=== PATIENT | male | born 1985 | race Caucasian/White ===

== ENCOUNTER 2017-07-19 16:21 | Observation (INO) | payer OTHER ==
[2017-07-19] MEDS ORDERED: NALOXONE 0.4 MG/ML 1 ML VIAL IV STA (16:44)
[2017-07-19] MEDS ORDERED: SODIUM CHLORIDE 0.9% 500 ML IV STA (16:46)
--- NOTE | 2017-07-19 16:48 | ED ---
General Adult HPI - General Chief complaint: Altered Mental Status Stated complaint: Alter Mental Status Time Seen by Provider: 07/19/17 16:21 Source: patient, police, EMS, RN notes reviewed Mode of arrival: EMS Limitations: altered mental status - History of Present Illness Initial comments: This is a 31-year-old male who was brought in accompanied by the police because he was driving erratically. Patient falls asleep quickly according to EMS but is easily arousable. EMS stated his eyes were pinpoint. Patient admits to being a previous heroin user but states she's been clean for quite a while. Patient denies any drug use today. Patient states she's just extremely tired from working too much. Patient denies any headache patient denies numbness weakness. Patient denies lightheadedness dizziness or syncopal episode. Patient denies chest pain palpitations difficulty breathing or shortness of breath per patient denies abdominal pain patient denies nausea vomiting diarrhea - Related Data Allergies Allergy/AdvReac Type Severity Reaction Status Date / Time No Known Allergies Allergy Verified 07/19/17 16:43 Review of Systems ROS Statement: Those systems with pertinent positive or pertinent negative responses have been documented in the HPI. ROS Other: All systems not noted in ROS Statement are negative. Past Medical History Past Medical History: No Reported History History of Any Multi-Drug Resistant Organisms: None Reported Past Surgical History: No Surgical Hx Reported Past Psychological History: No Psychological Hx Reported Smoking Status: Current every day smoker Past Alcohol Use History: None Reported Past Drug Use History: Heroin, IV Drug Use General Exam - General Exam Comments Initial Comments: GENERAL: Patient is well-developed and well-nourished. Patient is nontoxic and well- hydrated and is in no acute distress. Patient will fall sleep so she stopped talking to him but he is arousable with just verbal ENT: Neck is soft and supple. No significant lymphadenopathy is noted. Oropharynx is clear. Moist mucous membranes. Neck has full range of motion without eliciting any pain. There is no thyroid enlargement and no masses were felt. EYES: The sclera were anicteric and conjunctiva were pink and moist. Pupils are pinpoint. Extraocular movements were intact and pupils were equal round and reactive to light. Eyelids were unremarkable. PULMONARY: Unlabored respirations. Good breath sounds bilaterally. No audible rales rhonchi or wheezing was noted. CARDIOVASCULAR: There is a regular rate and rhythm without any murmurs gallops or rubs. ABDOMEN: Soft and nontender with normal bowel sounds. No palpable organomegaly was noted. There is no palpable pulsatile mass. SKIN: Skin is clear with no lesions or rashes and otherwise unremarkable. NEUROLOGIC: Patient is alert and oriented x3. Cranial nerves II through XII are grossly intact. Motor and sensory are also intact. Normal speech, volume and content. Symmetrical smile. MUSCULOSKELETAL: Normal extremities with adequate strength and full range of motion. No lower extremity swelling or edema. No calf tenderness. LYMPHATICS: No significant lymphadenopathy is noted PSYCHIATRIC: Normal psychiatric evaluation. Limitations: altered mental status Course Vital Signs 07/19/17 07/19/17 16:31 17:55 Temperature 97.9 F Pulse Rate 142 H 126 H Respiratory 15 20 Rate Blood Pressure 155/90 152/85 O2 Sat by Pulse 89 L 99 Oximetry Medical Decision Making - Medical Decision Making EKG shows sinus tachycardia at 133 bpm MA interval is 136 dresses 84 QT interval is 296 QTC is 440. Patient's EKG shows no ST segment elevation or depression or T wave normalities are noted. Chest x-ray shows no acute abnormalities I spoke with Dr. Ahuja he agreed to admit the patient admitted the patient I wrote admitting orders. - Lab Data Result diagrams: 07/19/17 16:55 07/19/17 16:55 Lab Results 07/19/17 07/19/17 07/19/17 Range/Units 16:50 16:55 16:55 WBC 13.0 H (3.8-10.6) k/uL RBC 4.99 (4.30-5.90) m/uL Hgb 15.7 (13.0-17.5) gm/dL Hct 47.1 (39.0-53.0) % MCV 94.3 (80.0-100.0) fL MCH 31.5 (25.0-35.0) pg MCHC 33.4 (31.0-37.0) g/dL RDW 14.1 (11.5-15.5) % Plt Count 359 (150-450) k/uL Neutrophils % 70 % Lymphocytes % 20 % Monocytes % 6 % Eosinophils % 1 % Basophils % 1 % Neutrophils # 9.2 H (1.3-7.7) k/uL Lymphocytes # 2.6 (1.0-4.8) k/uL Monocytes # 0.7 (0-1.0) k/uL Eosinophils # 0.1 (0-0.7) k/uL Basophils # 0.1 (0-0.2) k/uL Sodium 141 (137-145) mmol/L Potassium 4.3 (3.5-5.1) mmol/L Chloride 105 (98-107) mmol/L Carbon Dioxide 22 (22-30) mmol/L Anion Gap 14 mmol/L BUN 15 (9-20) mg/dL Creatinine 1.10 (0.66-1.25) mg/dL Est GFR (MDRD) Af Amer >60 (>60 ml/min/1.73 sqM) Est GFR (MDRD) Non-Af >60 (>60 ml/min/1.73 sqM) Glucose 126 H (74-99) mg/dL Calcium 9.4 (8.4-10.2) mg/dL Total Bilirubin 0.7 (0.2-1.3) mg/dL AST 197 H (17-59) U/L ALT 484 H (21-72) U/L Alkaline Phosphatase 139 H (38-126) U/L Total Protein 8.5 H (6.3-8.2) g/dL Albumin 4.6 (3.5-5.0) g/dL Salicylates <1.0 mg/dL Urine Opiates Screen Detected H (NotDetected) Ur Oxycodone Screen Not Detected (NotDetected) Urine Methadone Screen Not Detected (NotDetected) Ur Propoxyphene Screen Not Detected (NotDetected) Acetaminophen <10.0 ug/mL Ur Barbiturates Screen Not Detected (NotDetected) U Tricyclic Antidepress Not Detected (NotDetected) Ur Phencyclidine Scrn Not Detected (NotDetected) Ur Amphetamines Screen Not Detected (NotDetected) U Methamphetamines Scrn Not Detected (NotDetected) U Benzodiazepines Scrn Not Detected (NotDetected) Urine Cocaine Screen Not Detected (NotDetected) U Marijuana (THC) Screen Not Detected (NotDetected) Serum Alcohol <10 mg/dL Disposition Clinical Impression: Heroin abuse, Tachycardia, Elevated liver enzymes Disposition: ADMITTED IP TO THIS HOSP Referrals: Mariah Bauer MD [Primary Care Provider] - 1-2 days Time of Disposition: 18:51
[2017-07-19 17:11] LABS: Basophils # (A) 0.1 k/uL (0-0.2); Basophils % (A) 1 %; CH 30.9; CHCM 32.9; Eosinophils # (A) 0.1 k/uL (0-0.7); Eosinophils % (A) 1 %; HCT 47.1 % (39.0-53.0); HGB 15.7 gm/dL (13.0-17.5); Luc # (Auto) 0.31; Luc % (Auto) 2; Lymphocytes # (A) 2.6 k/uL (1.0-4.8); Lymphocytes % (A) 20 %; MCH 31.5 pg (25.0-35.0); MCHC 33.4 g/dL (31.0-37.0); MCV 94.3 fL (80.0-100.0); Mean Platelet Volume 6.6; Monocytes # (A) 0.7 k/uL (0-1.0); Monocytes % (A) 6 %; Neutrophils # (A) 9.2 k/uL (1.3-7.7); Neutrophils % (A) 70 %; RBC 4.99 m/uL (4.30-5.90); RDW 14.1 % (11.5-15.5)
[2017-07-19 17:15] LABS: ALT 484 U/L (21-72); AST 197 U/L (17-59); Acetaminophen <10.0 ug/mL; Alcohol <10 mg/dL; Alkaline Phosphatase 139 U/L (38-126); Anion Gap 14 mmol/L; Blood Urea Nitrogen 15 mg/dL (9-20); Calcium 9.4 mg/dL (8.4-10.2); Carbon Dioxide 22 mmol/L (22-30); Chloride 105 mmol/L (98-107); Glucose 126 mg/dL (74-99); Non-African American GFR(MDRD) >60 (>60 ml/min/1.73 sqM); Potassium 4.3 mmol/L (3.5-5.1); Salicylate <1.0 mg/dL; Sodium 141 mmol/L (137-145); Total Bilirubin 0.7 mg/dL (0.2-1.3); Total Protein 8.5 g/dL (6.3-8.2)
[2017-07-19] MEDS ORDERED: SODIUM CHLORIDE 0.9% 1,000 ML IV ONE (18:51)
--- NOTE | 2017-07-19 19:41 | XR ---
EXAMINATION TYPE: XR chest 2V DATE OF EXAM: 07/19/2017 COMPARISON: NONE HISTORY: Dyspnea and tachycardia TECHNIQUE: Frontal and lateral views of the chest are obtained. FINDINGS: There is no focal air space opacity, pleural effusion, or pneumothorax seen. The cardiac silhouette size is within normal limits. The osseous structures are intact. IMPRESSION: No acute cardiopulmonary process.
[2017-07-19 23:09] VITALS: BMI 26.4
[2017-07-20] MEDS ORDERED: ACETAMINOPHEN TAB 325 MG TAB PO PRN (06:18)
[2017-07-20 06:53] LABS: ALT 426 U/L (21-72); AST 178 U/L (17-59); Alkaline Phosphatase 105 U/L (38-126); Anion Gap 8 mmol/L; Blood Urea Nitrogen 13 mg/dL (9-20); Calcium 9.3 mg/dL (8.4-10.2); Carbon Dioxide 27 mmol/L (22-30); Chloride 102 mmol/L (98-107); Glucose 88 mg/dL (74-99); Non-African American GFR(MDRD) >60 (>60 ml/min/1.73 sqM); Potassium 4.4 mmol/L (3.5-5.1); Sodium 137 mmol/L (137-145); Total Bilirubin 0.9 mg/dL (0.2-1.3); Total Protein 7.5 g/dL (6.3-8.2)
[2017-07-20 07:40] VITALS: BP 115/71; PULSE 78; RESP 16; TEMP 98.1
--- NOTE | 2017-07-20 19:51 | HP ---
HISTORY AND PHYSICAL This is a combined History and Physical and Discharge Summary. DATE OF SERVICE: 07/20/2017 CHIEF COMPLAINT: Change in mental status. HISTORY OF PRESENT ILLNESS: This 31-year-old gentleman with a past medical history of multiple medical problems including polysubstance abuse, being followed by Dr. Mariah Bauer in the outpatient setting apparently was clean for several months but apparently patient sniffed some substance yesterday and the patient was found to be erratically driving and was confused and the patient taken to [facility] admitted for evaluation and treatment. There is no history of fever, rigors. No history of headache, loss of consciousness or seizures at this time. PAST MEDICAL HISTORY: History of polysubstance abuse, history of IV heroin abuse. MEDICATIONS: Motrin p.r.n. ALLERGIES: None. FAMILY HISTORY: History of cataract in the family. SOCIAL HISTORY: History of smoking, history of polysubstance abuse. REVIEW OF SYSTEMS: ENT: No diminished hearing or diminished vision. CARDIOVASCULAR: No angina or palpitations. RESPIRATORY: No cough or hemoptysis. GI: No nausea. : No dysuria. NERVOUS SYSTEM: No numbness. As mentioned. MUSCULOSKELETAL: As mentioned. HEMATOLOGY: No history of anemia. ENDOCRINOLOGY: No history of diabetes. CONSTITUTIONAL: As mentioned. PSYCHIATRIC: As mentioned. PHYSICAL EXAMINATION: Pulse 78, blood pressure 118/71, respirations 16, temp 98.1, pulse ox 97% room air. HEENT: Conjunctivae normal. NECK: No JVD. CARDIOVASCULAR: S1/S2, muffled. RESPIRATORY: Diminished breath sounds, especially at the bases. A few rhonchi. No crackles. ABDOMEN: Soft. Nontender. No mass palpable. LEGS: No edema. NEURO SYSTEM: No focal deficits. LABS: WBC 13 and glucose 126. AST is 197, ALT 484 and is stable at this time. ASSESSMENT: 1. Change in mental status, metabolic encephalopathy, possibly drug induced. 2. Elevated AST and ALT, possibly hepatitis, rule out hepatitis C. 3. Increased WBC. 4. History of polysubstance abuse. 5. History of nicotine dependence. RECOMMENDATION AND DISCUSSION: In this 31-year-old gentleman who presented with multiple complex medical issues , we will monitor the patient closely. Currently the patient has significant improvement. As mentioned, AST and ALT are stable at this time. I recommend a hepatitis panel but, however, the patient would like to be discharged and follow up in the outpatient setting. Also, discussed at length with the patient and recommended to continue with rehab efforts and narcotic anonymous meetings and continue to monitor. Otherwise, repeat labs in the outpatient setting. Prognosis guarded because of multiple complex medical issues. Further recommendations to follow. The patient will be discharged on Motrin on a p.r.n. basis. JENNIFER / KENDALLN: [id number] / MTDD
== END 2017-07-20 11:08 | disposition home or self-care (01) ==
LOC: EC 16:21 → 6SEL 18:51 → 3OBS 22:36
PROVIDERS: ADMIT Hospitalist; ATTEND Hospitalist
DX: G93.41 Metabolic encephalopathy (principal); R74.8 Abnormal levels of other serum enzymes; D72.829 Elevated white blood cell count, unspecified; R00.0 Tachycardia, unspecified; F11.10 Opioid abuse, uncomplicated; F17.200 Nicotine dependence, unspecified, uncomplicated; F19.10 Other psychoactive substance abuse, uncomplicated
CPT/HCPCS: 99285; 96374; 96361 ×5; 36415; 93005; 80053 ×2; 85025; 80306; 83520 ×2; 80320; 71020; G0378 ×3; J2310

== ENCOUNTER → 2020-05-09 | Outpatient (CLI) | payer OTHER ==
--- NOTE | 2020-05-09 09:40 | US ---
EXAMINATION TYPE: US liver DATE OF EXAM: 05/09/2020 COMPARISON: NONE CLINICAL HISTORY: B18.2 Chronic viral hepatitis C. Chronic viral hep C EXAM MEASUREMENTS: Liver Length: 16.0 cm Gallbladder Wall: 0.1 cm CBD: 0.4 cm Right Kidney: 11.4 x 4.4 x 5.4 cm Pancreas: wnl Liver: wnl Gallbladder: wnl Evidence for sonographic Matta's sign: no CBD: visualized portions wnl, limited by overlying bowel gas Right Kidney: wnl IMPRESSION: 1. No acute process.
== END | disposition home or self-care (01) ==
LOC: RADUSWWP 08:51
PROVIDERS: ATTEND Internal Medicine Gastroenterology
DX: B18.2 Chronic viral hepatitis C (principal)
CPT/HCPCS: 76705

== ENCOUNTER → 2020-09-04 | Outpatient (CLI) | payer OTHER ==
[2020-09-04 13:48] LABS: Basophils # (A) 0.1 k/uL (0-0.2); Basophils % (A) 1 %; Eosinophils # (A) 0.3 k/uL (0-0.7); Eosinophils % (A) 3 %; HGB 14.6 gm/dL (13.0-17.5); Lymphocytes # (A) 3.5 k/uL (1.0-4.8); Lymphocytes % (A) 43 %; MCHC 33.2 g/dL (31.0-37.0); MCV 93.4 fL (80.0-100.0); Mean Platelet Volume 6.8; Monocytes # (A) 0.3 k/uL (0-1.0); Monocytes % (A) 4 %; Neutrophils # (A) 3.8 k/uL (1.3-7.7); Neutrophils % (A) 47 %; Platelet Count 264 k/uL (150-450); RBC 4.72 m/uL (4.30-5.90); RDW 12.4 % (11.5-15.5); WBC 8.1 k/uL (3.8-10.6)
[2020-09-04 18:47] LABS: ALT 18 U/L (10-49); AST 28 U/L (14-35); Albumin/Globulin Ratio 1.39 (1.60-3.17); Alkaline Phosphatase 67 U/L (41-126); Bilirubin, Conjugated <0.20 mg/dL (0.20-0.40); Globulin 3.1 g/dL (1.6-3.3); Total Bilirubin 0.3 mg/dL (0.2-1.2); Total Protein 7.4 g/dL (6.2-8.2)
== END | disposition home or self-care (01) ==
LOC: LABWHC1 12:12
PROVIDERS: ATTEND Physician Assistant
DX: B18.2 Chronic viral hepatitis C (principal)
CPT/HCPCS: 36415; 80076; 85025; 87522

== ENCOUNTER 2021-04-01 11:35 | Emergency (ER) | payer OTHER ==
[2021-04-01 12:12] VITALS: BP 115/74; PULSE 78; RESP 18; TEMP 98.3
--- NOTE | 2021-04-01 12:56 | XR ---
EXAMINATION TYPE: XR knee complete LT DATE OF EXAM: 04/01/2021 CLINICAL HISTORY: left knee pain TECHNIQUE: Three views of the left knee are obtained. COMPARISON: None. FINDINGS: There is no acute fracture/dislocation evident in left knee. The tri-compartment joint sp aces appear within normal limits. The overlying soft tissue appears unremarkable. IMPRESSION: There is no acute fracture or dislocation in the left knee.
[2021-04-01] MEDS ORDERED: KETOROLAC 15 MG/ML 1 ML VIAL IM STA (13:17)
--- NOTE | 2021-04-01 13:22 | ED ---
General Adult HPI - General Chief complaint: Extremity Injury, Lower Stated complaint: Knee injury Time Seen by Provider: 04/01/21 12:28 Source: patient, RN notes reviewed Mode of arrival: ambulatory Limitations: no limitations - History of Present Illness Initial comments: Patient is a pleasant 35-year-old male presenting to the emergency Department wi complaints of left knee discomfort. Onset of symptoms was a couple of days ago with picking up his daughter going from a sitting to standing edition. Patient aggravated a couple other times at work. Patient does have some mild chronic knee limbs associated with work and hockey lifelong. Patient states discomfort is minimal at rest but severe with certain movements. No swelling. No redness or warmth. No fevers. No leg weakness. - Related Data Home Medications Medication Instructions Recorded Confirmed Ibuprofen [Motrin] 800 mg PO Q8H PRN 07/19/17 07/19/17 Previous Rx's Medication Instructions Recorded Ibuprofen [Motrin] 600 mg PO Q6HR PRN #20 tab 04/01/21 Allergies Allergy/AdvReac Type Severity Reaction Status Date / Time No Known Allergies Allergy Verified 04/01/21 12:11 Review of Systems ROS Statement: Those systems with pertinent positive or pertinent negative responses have been documented in the HPI. ROS Other: All systems not noted in ROS Statement are negative. Constitutional: Denies: fever Eyes: Denies: eye pain ENT: Denies: ear pain Respiratory: Denies: cough Cardiovascular: Denies: chest pain Endocrine: Denies: fatigue Gastrointestinal: Denies: abdominal pain Genitourinary: Denies: dysuria Musculoskeletal: Reports: as per HPI Skin: Denies: rash Neurological: Denies: weakness Past Medical History Past Medical History: No Reported History History of Any Multi-Drug Resistant Organisms: None Reported Past Surgical History: No Surgical Hx Reported Additional Past Surgical History / Comment(s): 4 wisdom teeth removed Past Anesthesia/Blood Transfusion Reactions: No Reported Reaction Past Psychological History: No Psychological Hx Reported Smoking Status: Current every day smoker Past Alcohol Use History: None Reported Past Drug Use History: Heroin, IV Drug Use - Past Family History Mother Additional Family Medical History / Comment(s): cataract Father Family Medical History: No Reported History General Exam Limitations: no limitations General appearance: alert, in no apparent distress Head exam: Present: normocephalic Eye exam: Present: normal appearance Respiratory exam: Present: normal lung sounds bilaterally Cardiovascular Exam: Present: regular rate, normal rhythm Expanded Peripheral pulses: 2+: Posterior Tibialis (L), Dorsalis Pedis (L) Left Knee exam: Present: normal inspection, tenderness (Mild tenderness and area of medial meniscus). Absent: full ROM (Pain with range of motion), swelling, ecchymosis, erythema, effusion, posterior draw sign, pain/laxity with valgus, pain/laxity with varus Neurological exam: Present: alert. Absent: motor sensory deficit Psychiatric exam: Present: normal affect, normal mood Skin exam: Present: normal color Course Vital Signs 04/01/21 12:07 Temperature 98.3 F Pulse Rate 78 Respiratory 18 Rate Blood Pressure 115/74 O2 Sat by Pulse 99 Oximetry Medical Decision Making - Medical Decision Making Patient updated on results and recommend for follow-up with orthopedics Disposition Clinical Impression: Medial meniscus tear Disposition: HOME SELF-CARE Condition: Stable Instructions (If sedation given, give patient instructions): Knee Sprain (ED), Knee Pain (ED) Additional Instructions: Please do follow-up with primary care physician and orthopedics in the next couple days for recheck. Limit use of left knee. Ice to affected area. Continue use of crutches. Motrin as needed, prescription for Motrin 600 has been sent to pharmacy. Return for fever, increased pain or swelling, weakness, worsening symptoms or other concerns. Prescriptions: Ibuprofen [Motrin] 600 mg PO Q6HR PRN #20 tab PRN Reason: Pain Is patient prescribed a controlled substance at d/c from ED?: No Referrals: Mariah Bauer MD [Primary Care Provider] - 1-2 days Time of Disposition: 13:21
== END 2021-04-01 13:46 | disposition home or self-care (01) ==
LOC: EC 11:35
DX: S83.242A Other tear of medial meniscus, current injury, left knee, initial encounter (principal); F17.200 Nicotine dependence, unspecified, uncomplicated; Z79.1 Long term (current) use of non-steroidal anti-inflammatories (NSAID); X58.XXXA Exposure to other specified factors, initial encounter
CPT/HCPCS: 73562; 99283; 96372; L1830; J1885

== ENCOUNTER 2024-04-30 21:03 | Emergency (ER) | payer OTHER ==
[2024-04-30 21:08] VITALS: TEMP 98.3
[2024-04-30] MEDS: IBUPROFEN 800 MG TAB PO STA (22:17)
--- NOTE | 2024-04-30 22:48 | ED ---
Lower Extremity Injury HPI - General Chief Complaint: Extremity Injury, Lower Stated Complaint: right ankle injury Time Seen by Provider: 04/30/24 22:00 Source: patient, RN notes reviewed Mode of arrival: ambulatory Limitations: no limitations - History of Present Illness Initial Comments: 38-year-old male presenting with right ankle injury prior to arrival. States he was playing hockey when he all of a sudden felt a pop in his right ankle. He is having difficulty ambulating due to pain. Denies numbness or tingling. No other injuries. - Related Data Home Medications Medication Instructions Recorded Confirmed Ibuprofen [Motrin] 800 mg PO Q8H PRN 07/19/17 07/19/17 Previous Rx's Medication Instructions Recorded Ibuprofen [Motrin] 600 mg PO Q6HR PRN #20 tab 04/01/21 Allergies Allergy/AdvReac Type Severity Reaction Status Date / Time No Known Allergies Allergy Verified 04/30/24 21:07 Review of Systems ROS Statement: Those systems with pertinent positive or pertinent negative responses have been documented in the HPI. ROS Other: All systems not noted in ROS Statement are negative. Past Medical History Past Medical History: No Reported History History of Any Multi-Drug Resistant Organisms: None Reported Past Surgical History: No Surgical Hx Reported Additional Past Surgical History / Comment(s): 4 wisdom teeth removed Past Anesthesia/Blood Transfusion Reactions: No Reported Reaction Past Psychological History: No Psychological Hx Reported Smoking Status: Current every day smoker Past Alcohol Use History: None Reported Past Drug Use History: Heroin, IV Drug Use - Past Family History Mother Additional Family Medical History / Comment(s): cataract Father Family Medical History: No Reported History General Exam Limitations: no limitations General appearance: alert, in no apparent distress Head exam: Present: atraumatic, normocephalic, normal inspection Right Lower Leg exam: Present: normal inspection, full ROM. Absent: tenderness, swelling Ankle exam: Present: normal inspection, full ROM ( pain with plantar and dorsi flexion), tenderness (Mild tenderness over lateral malleolus). Absent: anterior draw sign (Negative anterior and posterior drawer. Negative Burger test) Foot/Toe exam: Present: normal inspection, full ROM. Absent: tenderness, sw elling Neurovascular tendon exam: Present: no vascular compromise. Absent: pulse deficit, abnormal cap refill, sensory deficit Course Vital Signs 04/30/24 21:05 Temperature 98.3 F Pulse Rate 66 Respiratory 18 Rate Blood Pressure 135/89 O2 Sat by Pulse 98 Oximetry Procedures - Orthopedic Splinting/Casting Injury #1 Side: right Lower Extremity Injury Location: ankle Lower Extremity Immobilizer: posterior splint Other Orthopedic Equipment: crutches Additional Comments: Neurovascularly intact status post procedure Medical Decision Making - Medical Decision Making Was pt. sent in by a medical professional or institution (, PA, AIRCRAFT LOADMASTER SUPERINTENDENT, urgent care, hospital, or prison...) When possible be specific @ -No Did you speak to anyone other than the patient for history (EMS, parent, family, police, friend...)? What history was obtained from this source @ -No Did you review nursing and triage notes (agree or disagree)? Why? @ -I reviewed and agree with nursing and triage notes Were old charts reviewed (outside hosp., previous admission, EMS record, old EKG, old radiological studies, urgent care reports/EKG's, prison records)? Report findings @ -No old charts were reviewed Differential Diagnosis (chest pain, altered mental status, abdominal pain women, abdominal pain men, vaginal bleeding, weakness, fever, dyspnea, syncope, headache, dizziness, GI bleed, back pain, seizure, CVA, palpatations, mental health, musculoskeletal)? @ -Differential Musculoskeletal Muscular strain, contusion, ligament sprain, fracture, arthritis, septic arthritis, bursitis, cellulitis, muscle spasm, nerve compression, DVT, arterial occlusion, herpes zoster, electrolyte abnormality, tumor.... This is not meant to be in all inclusive list EKG interpreted by me (3pts min.). @ -None X-rays interpreted by me (1pt min.). @ -X-ray interpreted by me reveals no acute process CT interpreted by me (1pt min.). @ -None done U/S interpreted by me (1pt. min.). @ -None done What testing was considered but not performed or refused? (CT, X-rays, U/S, labs)? Why? @ -None What meds were considered but not given or refused? Why? @ -None Did you discuss the management of the patient with other professionals (professionals i.e. , PA, AIRCRAFT LOADMASTER SUPERINTENDENT, lab, RT, psych nurse, social media project manager, chiller hand, teacher, worldwide chief creative officer, casework specialist)? Give summary @ -No Was smoking cessation discussed for >3mins.? @ -No Was critical care preformed (if so, how long)? @ -No Were there social determinants of health that impacted care today? How? (Homelessness, low income, unemployed, alcoholism, drug addiction, transportation, low edu. Level, literacy, decrease access to med. care, senior living, rehab)? @ -No Was there de-escalation of care discussed even if they declined (Discuss DNR or withdrawal of care, Hospice)? DNR status @ -No What co-morbidities impacted this encounter? (DM, HTN, Smoking, COPD, CAD, Cancer, CVA, ARF, Chemo, Hep., AIDS, mental health diagnosis, sleep apnea, morbid obesity)? @ -None Was patient admitted / discharged? Hospital course, mention meds given and route, prescriptions, significant lab abnormalities, going to OR and other pertinent info. @ -Patient was discharged. Patient was seen and evaluated for right ankle injury prior to arrival. Patient is neurovascularly intact. Patient was given oral ibuprofen for pain. X-ray interpreted by me reveals no acute process. Posterior splint placed and patient given crutches due to difficulty ambulating. Advised to follow-up with Ortho if symptoms persist. Strict return/alarm symptoms discussed with patient and he shows understanding and agrees with plan. Supportive care discussed. Case was discussed with my attending Dr. Baldwin. Patient discharged in stable condition. Undiagnosed new problem with uncertain prognosis? @ -No Drug Therapy requiring intensive monitoring for toxicity (Heparin, Nitro, Insulin, Cardizem)? @ -No Were any procedures done? @ -Posterior splint placed Diagnosis/symptom? @ -Right ankle sprain Acute, or Chronic, or Acute on Chronic? @ -Acute Uncomplicated (without systemic symptoms) or Complicated (systemic symptoms)? @ -Uncomplicated Side effects of treatment? @ -No Exacerbation, Progression, or Severe Exacerbation? @ -No Poses a threat to life or bodily function? How? (Chest pain, [place], SC, pneumonia, PE, COPD, DKA, ARF, appy, cholecystitis, CVA, Diverticulitis, Homicidal, Suicidal, threat to staff... and all critical care pts) @ -No Disposition Clinical Impression: Right ankle sprain Disposition: HOME SELF-CARE Condition: Stable Instructions (If sedation given, give patient instructions): Ankle Sprain (ED) Additional Instructions: Please follow-up with Ortho if symptoms persist. Apply ice to affected area. Take ibuprofen or Tylenol as needed for pain. Please return to the Emergency Department if symptoms worsen or any other concerns. Is patient prescribed a controlled substance at d/c from ED?: No Referrals: Mariah Bauer MD [Primary Care Provider] - 1-2 days Geremias Aranda DO [Doctor of Osteopathic Medicine] - 1-2 days Time of Disposition: 23:45
[2024-05-01 00:12] VITALS: BP 124/73; PULSE 67; RESP 16
--- NOTE | 2024-05-01 00:47 | XR ---
EXAM: XR Right Ankle Complete, 3 or More Views CLINICAL HISTORY: ITS.REASON XR Reason: right ankle injury TECHNIQUE: Frontal, lateral and oblique views of the right ankle. COMPARISON: No relevant prior studies available. FINDINGS: Bones/joints: Unremarkable. No acute fracture. No dislocation. Soft tissues: Unremarkable. IMPRESSION: No acute fracture.
== END 2024-04-30 23:57 | disposition home or self-care (01) ==
LOC: EC 21:03
DX: S93.401A Sprain of unspecified ligament of right ankle, initial encounter (principal); F17.200 Nicotine dependence, unspecified, uncomplicated; W18.30XA Fall on same level, unspecified, initial encounter; Y93.65 Activity, lacrosse and field hockey
CPT/HCPCS: 29125; 99283

== ENCOUNTER 2025-03-01 01:10 | Emergency (ER) | payer OTHER ==
[2025-03-01 01:15] VITALS: BP 124/84; PULSE 103; RESP 18; TEMP 98.3
--- NOTE | 2025-03-01 01:22 | ED ---
General Adult HPI - General Chief complaint: Wound/Laceration Stated complaint: face lac Time Seen by Provider: 03/01/25 01:16 Source: patient, RN notes reviewed, old records reviewed Mode of arrival: ambulatory - History of Present Illness Initial comments: 29-year-old male with injury to the right lower lip while playing hockey. Patient took a puck to the lower lip and face. He had bleeding noted. He denies any dental pain specifically noted a laceration on the mucosal surface of his right lower lip with bleeding. No other injury reported. - Related Data Home Medications Medication Instructions Recorded Confirmed Ibuprofen [Motrin] 800 mg PO Q8H PRN 07/19/17 07/19/17 Previous Rx's Medication Instructions Recorded Ibuprofen [Motrin] 600 mg PO Q6HR PRN #20 tab 04/01/21 Allergies Allergy/AdvReac Type Severity Reaction Status Date / Time No Known Allergies Allergy Verified 03/01/25 01:14 Review of Systems ROS Statement: Those systems with pertinent positive or pertinent negative responses have been documented in the HPI. ROS Other: All systems not noted in ROS Statement are negative. Past Medical History Past Medical History: No Reported History History of Any Multi-Drug Resistant Organisms: None Reported Past Surgical History: Orthopedic Surgery Additional Past Surgical History / Comment(s): 4 wisdom teeth removed Past Anesthesia/Blood Transfusion Reactions: No Reported Reaction Past Psychological History: No Psychological Hx Reported Smoking Status: Current every day smoker Past Alcohol Use History: None Reported Past Drug Use History: Heroin, IV Drug Use - Past Family History Mother Additional Family Medical History / Comment(s): cataract Father Family Medical History: No Reported History General Exam General appearance: alert, in no apparent distress Head exam: Present: atraumatic, normocephalic Eye exam: Present: normal appearance, PERRL ENT exam: Present: other (Less than 1 cm mucosal laceration on the inner surface of the lower lip right side. No dental injury noted. No active bleeding. Laceration is not through and through and does not cross the vermilion border.) Neck exam: Present: normal inspection. Absent: tenderness Respiratory exam: Present: normal lung sounds bilaterally Cardiovascular Exam: Present: regular rate, normal rhythm GI/Abdominal exam: Absent: distended Course Vital Signs 03/01/25 01:12 Temperature 98.3 F Pulse Rate 103 H Respiratory 18 Rate Blood Pressure 124/84 O2 Sat by Pulse 100 Oximetry Medical Decision Making - Medical Decision Making Was pt. sent in by a medical professional or institution ([facility], [employer], urgent care, hospital, or fpc...) When possible be specific @ -No Did you speak to anyone other than the patient for history (EMS, parent, family, police, friend...)? What history was obtained from this source @ -No Did you review nursing and triage notes (agree or disagree)? Why? @ -I reviewed and agree with nursing and triage notes Were old charts reviewed (outside hosp., previous admission, EMS record, old EKG, old radiological studies, urgent care reports/EKG's, fpc records)? Report findings @ -No old charts were reviewed Differential Diagnosis mandibular fracture, lip laceration, dental trauma EKG interpreted by me (3pts min.). @ -As above X-rays interpreted by me (1pt min.). @ -None done CT interpreted by me (1pt min.). @ -None done U/S interpreted by me (1pt. min.). @ -None done What testing was considered but not performed or refused? (CT, X-rays, U/S, labs)? Why? @ -None What meds were considered but not given or refused? Why? @ -None Did you discuss the management of the patient with other professionals (professionals i.e. [facility], [employer], lab, RT, psych nurse, social work specialist, certified art therapist, teacher, chief fundraising officer, telehealth case manager)? Give summary @ -No Was smoking cessation discussed for >3mins.? @ -No Was critical care preformed (if so, how long)? @ -No Were there social determinants of health that impacted care today? How? (Homelessness, low income, unemployed, alcoholism, drug addiction, transportation, low edu. Level, literacy, decrease access to med. care, correction, rehab)? @ -No Was there de-escalation of care discussed even if they declined (Discuss DNR or withdrawal of care, Hospice)? DNR status @ -No What co-morbidities impacted this encounter? (DM, HTN, Smoking, COPD, CAD, Cancer, CVA, ARF, Chemo, Hep., AIDS, mental health diagnosis, sleep apnea, morbid obesity)? @ -None Was patient admitted / discharged? Hospital course, mention meds given and route, prescriptions, significant lab abnormalities, going to OR and other pertinent info. @ -29-year-old male with mucosal lip laceration less than 1 cm, no active bleeding, this does not require repair. The edges are well-approximated and it is superficial in nature. Patient will gargle with salt water keep the area clean. Undiagnosed new problem with uncertain prognosis? @ -No Drug Therapy requiring intensive monitoring for toxicity (Heparin, Nitro, Insulin, Cardizem)? @ -No Were any procedures done? @ -No Diagnosis/symptom? @ -Lip laceration, mucosal Acute, or Chronic, or Acute on Chronic? @ -Acute Uncomplicated (without systemic symptoms) or Complicated (systemic symptoms)? @ -Default Side effects of treatment? @ -No Exacerbation, Progression, or Severe Exacerbation? @ -No Poses a threat to life or bodily function? How? (Chest pain, [place], [place], pneumonia, PE, COPD, DKA, ARF, appy, cholecystitis, CVA, Diverticulitis, Homicidal, Suicidal, threat to staff... and all critical care pts) @ -No Disposition Clinical Impression: Lip laceration Disposition: HOME SELF-CARE Condition: Good Instructions (If sedation given, give patient instructions): Laceration (ED) Is patient prescribed a controlled substance at d/c from ED?: No Referrals: Mariah Bauer MD [Primary Care Provider] - 1-2 days Time of Disposition: 01:22
== END 2025-03-01 01:41 | disposition home or self-care (01) ==
LOC: EC 01:10
DX: S01.511A Laceration without foreign body of lip, initial encounter (principal); F17.200 Nicotine dependence, unspecified, uncomplicated; X58.XXXA Exposure to other specified factors, initial encounter; Y93.22 Activity, ice hockey
CPT/HCPCS: 99282